=== PATIENT | male | born 1970 | race Caucasian/White ===

== ENCOUNTER 2021-10-17 12:49 | Emergency (ER) | payer OTHER, SELFPAY ==
[2021-10-17 12:56] VITALS: BP 135/93; PULSE 80; RESP 14; TEMP 36.6; O2SAT 96; BMI 33.3
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
== END 2021-10-17 14:25 | disposition home or self-care (01) ==
PROVIDERS: Emergency Provider Physician Assistant
DX: S09.90XA Unspecified injury of head, initial encounter (principal); V89.2XXA Person injured in unspecified motor-vehicle accident, traffic, initial encounter; Y92.410 Unspecified street and highway as the place of occurrence of the external cause
CPT/HCPCS: 70450; 99283

== ENCOUNTER → 2023-02-26 08:44 | Outpatient (BNVA) | payer OTHER, SELFPAY | PROVIDERS: Referring Provider Nurse Practitioner; Visit Provider Psychiatry & Neurology Neurology | DX: S06.9XAA Unspecified intracranial injury with loss of consciousness status unknown, initial encounter (principal); Z71.89 Other specified counseling; F15.20 Other stimulant dependence, uncomplicated; X58.XXXA Exposure to other specified factors, initial encounter; Z87.820 Personal history of traumatic brain injury; E24.0 Pituitary-dependent Cushing's disease; Z79.899 Other long term (current) drug therapy | CPT/HCPCS: 80306; 99203 ==

== ENCOUNTER 2023-03-26 06:50 | Outpatient (CLI) | payer OTHER, SELFPAY ==
--- NOTE | 2023-03-26 07:15 | MR_ITS ---
WS: [id number] MRI HEAD WITH CONTRAST TECHNIQUE: Sagittal T1, T2 axial, T2 axial FLAIR, axial susceptibility weighted imaging, axial diffus ion weighted images, and coronal T2 images were obtained. Pre and post-T1 axial and post T1 coronal i mages. ADC and FSPGR images. CLINICAL INFORMATION: Z71.89 - Other specified counseling Patient with reported nonspecific history o f gamma knife therapy COMPARISON: CT 10/17/21 FINDINGS: No evidence of restricted diffusion to suggest acute ischemia. Ventricular system and basilar cistern s are patent. Normal posterior fossa. Normal vascular flow voids at the skull base. No extra-axial fl uid collections. No evidence of mass or mass effect. Paranasal sinuses and mastoid air cells are well aerated. Small focus of cystic encephalomalacia LEFT frontal white matter as described on the recent CT with a small focus of hemosiderin. Additional tiny focus of T2 hyperintensity in the LEFT banks radiata. N o other suspicious intracranial signal abnormalities. Some images degraded by motion. Normal posterior nasopharynx. No other foci of hemosiderin on the susceptibility weighted images. Nor mal optic chiasm and pituitary infundibulum. Temporal lobes and hippocampal formations are normal in appearance. No abnormal gadolinium enhancement. IMPRESSION: 1. No evidence of restricted diffusion to suggest acute ischemia. 2. Small focus of cystic encephalomalacia LEFT frontal horn with a small focus of hemosiderin. Addit ional tiny focus of T2 hyperintensity in the LEFT banks radiata. Differential considerations include small vessel changes with chronic lacunar infarct, hypertension, diabetes. Demyelinating disease muc h less likely. 3. LEFT frontal periventricular lesion could be the site of prior gamma knife therapy. Recommend cor relation with clinical history. 4. No abnormal gadolinium enhancement. 5. No other suspicious findings.
[2023-03-26] MEDS: gadobenate dimeglumine 20 mL vial IV (08:01)
== END 2023-03-26 06:51 | disposition home or self-care (01) ==
LOC: RAD 06:50
PROVIDERS: PCP Nurse Practitioner; Visit Provider Psychiatry & Neurology Neurology
DX: G93.89 Other specified disorders of brain (principal); Z87.820 Personal history of traumatic brain injury; Z71.89 Other specified counseling
CPT/HCPCS: 70553; A9577

== ENCOUNTER → 2023-04-30 09:02 | Outpatient (BNVA) | payer OTHER, SELFPAY | PROVIDERS: PCP Nurse Practitioner; Visit Provider Psychiatry & Neurology Neurology | DX: Z87.820 Personal history of traumatic brain injury (principal) | CPT/HCPCS: 99212 ==

== ENCOUNTER → 2024-06-01 14:39 | Outpatient (BNVA) | payer OTHER, SELFPAY | PROVIDERS: PCP Nurse Practitioner; Visit Provider Psychiatry & Neurology Neurology | DX: Z87.820 Personal history of traumatic brain injury (principal) | CPT/HCPCS: 99212 ==